=== PATIENT | female | born 1985 | race Caucasian/White ===

== ENCOUNTER → 2019-04-04 | Outpatient (CLI) | payer OTHER | END | disposition home or self-care (01) | LOC: PRENATAL 09:00 | DX: O35.3XX1 Maternal care for (suspected) damage to fetus from viral disease in mother, fetus 1 (principal); O99.810 Abnormal glucose complicating pregnancy; O36.5920 Maternal care for other known or suspected poor fetal growth, second trimester, not applicable or unspecified ==

== ENCOUNTER 2019-08-04 13:12 | Inpatient (IN) | payer OTHER ==
[~2019-08-04] VITALS: Ht 167.6 cm; Wt 65.3 kg
[2019-08-04] MEDS ORDERED: PRENATAL 19 TA1 EACH PO (13:52)
[2019-08-04] MEDS ORDERED: FOLIC ACID0.8 M1 PO (13:53)
== END 2019-08-06 12:23 | disposition home or self-care (01) | DRG 807 ==
LOC: LDR 13:12 → SURG-SUITE 13:12
PROVIDERS: ADMIT Obstetrics & Gynecology; ATTEND Obstetrics & Gynecology
PROC: 10E0XZZ Delivery of Products of Conception, External Approach (ICD-10-PCS; principal; 2019-08-04)
PROC: 10907ZC Drainage of Amniotic Fluid, Therapeutic from Products of Conception, Via Natural or Artificial Opening (ICD-10-PCS; 2019-08-04)
PROC: 4A1HXFZ Monitoring of Products of Conception, Cardiac Rhythm, External Approach (ICD-10-PCS; 2019-08-04)
PROC: 0HQ9XZZ Repair Perineum Skin, External Approach (ICD-10-PCS; 2019-08-04)
PROC: 3E033VJ Introduction of Other Hormone into Peripheral Vein, Percutaneous Approach (ICD-10-PCS; 2019-08-04)
DX: O99.12 Other diseases of the blood and blood-forming organs and certain disorders involving the immune mechanism complicating childbirth (principal); Z37.0 Single live birth; D69.6 Thrombocytopenia, unspecified; Z3A.37 37 weeks gestation of pregnancy; Z88.8 Allergy status to other drugs, medicaments and biological substances; O70.0 First degree perineal laceration during delivery